=== PATIENT | male | born 1990 | race Hispanic/Latino ===

== ENCOUNTER 2016-12-02 22:19 | Emergency (ER) | payer OTHER ==
[~2016-12-02] VITALS: Ht 177.8 cm; Wt 68.2 kg
[2016-12-02 22:23] VITALS: BP 147/105; PULSE 71; RESP 16; O2SAT 99
[2016-12-02 23:32] LABS: BASOPHILS % (AUTO) 0.6 % (0-3); EOSINOPHILS % (AUTO) 1.2 % (0-5); MONOCYTES % (AUTO) 5.5 % (4-12); Mean Corpuscular Hemoglobin 33.3 pg (27.0-35.0); NEUTROPHILS % (AUTO) 57.8 % (40-74); Platelet Count 349 bil/L (150-400)
[2016-12-02 23:58] LABS: Magnesium 1.9 mg/dL (1.6-2.6)
--- NOTE | 2016-12-03 01:26 | ED.REPORT ---
HPI-Overdose/Alcohol Toxicity Date of Service Dec 03, 2016 ED Provider: Jose Rafael Meza MD The patient is a 26 year old male with a history of PTSD who presents to the ED with intermittent lower abdominal pain onset one year ago, worsening recently. The pain is described as "cramping" with occasional "sharpness," rated 10/10 at worst and exacerbated with alcohol use. Associated symptoms include nausea, dizziness, vision change, vomiting, and abdominal distention. The patient denies other symptoms. He has been drinking approximately 750mL hard alcohol per day for the past four months and has been drinking regularly for a couple of years. The patient's last alcoholic drink was at 2000 this evening. He has not been sober for more than three days in the past few months. He requests assistance with alcohol detox. History is difficult to obtain due to patient's alcohol intoxication. Nursing Notes Stated Complaint: ABDOMEN/LUNG PAIN Chief Complaint: Male Abdominal Pain Nursing Notes Reviewed: Yes Allergies: Coded Allergies: No Known Allergies (Unverified , 12/02/16) General Time Seen by Provider: 23:24 Chief Complaint Other (Abdominal Pain) Hx Obtained From: Patient Unable to Obtain Hx: Intoxicated Arrived By: Walk-in Onset Occurred: More than a week ago... (One year, worsening recently) Symptom Duration: Intermittent Progression Since Onset: Gradually worsening Location: : Abdomen Quality: Cramping, Painful, Sharp Severity: Current: Moderate Severity: Maximum: Pain level 10 out of 10 Exacerbated by: Alcohol use Pertinent Negative: Relieved by nothing Immunizations: Unknown Recent Healthcare: No recent doctor visit Past Medical History Past Medical History PTSD Past Surgical History None reported Smoking History Unknown if Ever Smoker Social History Alcohol Use: >5 per day Other Social History: Good social support Ambulatory Status Independent Review of Systems Review of Systems Note: + Abdominal distention Constitutional: Denies: Fever Respiratory: Denies: Non-productive cough, Shortness of breath GI: Reports: Abdominal pain (Lower), Nausea, Vomiting Neurologic: Reports: Dizziness, Vision change Complete sys rev & neg: except as marked. Physical Exam Initial Vital Signs Vital Signs (First) Date Time Temp Pulse Resp B/P Pulse Ox O2 Delivery O2 Flow Rate FiO2 12/02/16 22:23 36.2 71 16 147/105 99 Room Air Initial VS: Reviewed, Vital signs abnormal Head / Eyes: Atraumatic, Normocephalic ENT: Conjunctiva normal, No scleral icterus Neck: Supple, Full range of motion Skin: Warm, Dry, No cyanosis General/Constitutional: Awake, Alert Smells of alcohol Respiratory / Chest: Breath sounds NL, Breath sounds = bilat, No respiratory distress Cardiovascular: Heart rate NL, Regular rhythm, Heart sounds NL Abdomen: Soft, Non-tender Organomegaly / Mass / Hernia: Negative: Hepatomegaly Neurologic: Oriented X3, Speech NL Interpretation & Diagnostics BREATHALYZER: 0.201 URINE DRUG SCREEN: Negative URINE DIPSTICK: Bedside Urine Specific [place] * 1.010 Bedside Urine pH * 7 Bedside Urine Leukocyte Esterase * Negative Bedside Urine Nitrite * Negative Bedside Urine Protein * Negative Bedside Urine Glucose * Normal Bedside Urine Ketones * Negative Bedside Urine Urobilinogen * Normal Bedside Urine Bilirubin * Negative Bedside Urine Occult Blood * Negative Urine to Lab * Yes Lab Results Interpretation Result Diagram: 12/02/165 12/02/16 2315 Test 12/02/16 23:15 12/02/16 23:36 White Blood Count 8.6th/mm3 (3.8-10.1) Red Blood Count 5.13mil/mm3 (4.40-5.80) Hemoglobin 17.1g/dL (13.8-17.2) Hematocrit 47.7% (41.0-50.0) Mean Corpuscular Volume 93.0fL (81-100) Mean Corpuscular Hemoglobin 33.3pg (27.0-35.0) Mean Corpuscular Hemoglobin Concent 35.8% (32.0-37.0) Red Cell Distribution Width 12.3% (12.3-15.4) Platelet Count 349bil/L (150-400) Neutrophils (%) (Auto) 57.8% (40-74) Lymphocytes (%) (Auto) 34.7% (14-46) Monocytes (%) (Auto) 5.5% (4-12) Eosinophils (%) (Auto) 1.2% (0-5) Basophils (%) (Auto) 0.6% (0-3) Sodium Level 141mEq/L (134-144) Potassium Level 3.8mEq/L (3.5-5.2) Chloride Level 101mEq/L (97-108) Carbon Dioxide Level 23mmol/L (18-29) Blood Urea Nitrogen 9mg/dL (6-20) Creatinine 0.62mg/dL (0.76-1.27) Estimat Glomerular Filtration Rate 168mL/min (>59) Glucose Level 97mg/dL (60-99) Calcium Level 9.1mg/dL (8.5-10.1) Magnesium Level 1.9mg/dL (1.6-2.6) Total Bilirubin 0.2mg/dL (0.0-1.2) Aspartate Amino Transf (AST/SGOT) 23U/L (0-50) Alanine Aminotransferase (ALT/SGPT) 14U/L (0-44) Alkaline Phosphatase 89U/L (25-150) Total Protein 8.3g/dL (6.4-8.4) Albumin 4.8g/dL (3.4-5.0) Lipase 30U/L (13-60) Hold [place] Top Tube Received (Received) Hold Urine Received (Received) Lab values outside NL range: no clinical significance. Lab Results Interpretation: Unremarkable except for elevated alcohol at 201 Re-Eval/Medical Decision Med Decision/Clinical Course 26-year-old who drinks heavily on a daily basis. He was brought in by his family. He initially did not want me talking to his family about his problem but I felt that they needed to be involved. We discussed this and he gave me verbal permission to include them in the plan. He is unwilling to go to [facility] or be admitted for detox. His family is willing to take him home and they will be responsible for his Ativan taper prescription. He was encouraged to follow up with shipping and receiving specialist. He will return to the emergency room if he has complications of withdrawal. Re-Evaluation/Progress : Time of Eval: 02:27 Patient Status: Condition improved Re-Evaluation/Progress Note: Discussed patient's case with his family. Discussed with patient lab results, diagnosis, and plan for discharge. Follow-up and return to the ER instructions given. Patient agrees with plan for care and all questions were addressed. Counseled Regarding: Diagnosis, Lab results, Need for follow-up, When/why to return to ED Discharge & Departure Impression: Primary Impression: Abdominal pain Abdominal location: generalized Qualified Code: R10.84 - Generalized abdominal pain Additional Impression: Alcohol abuse Disposition: Home Discharge Condition All VS Reviewed: Yes Condition: Improved Patient Instructions: Abuse of Alcohol (ED), Acute Abdominal Pain (ED) Additional Instructions: As we discussed, you need to stop drinking. This is difficult to do on your own. You may develop withdrawal symptoms and medical complications of withdrawal. Lorazepam (Ativan) will be helpful for the withdrawal symptoms, please see the prescription we have given you. Also, we have given you a list of professional counseling resources. I would highly recommend that you get involved in outpatient alcohol counseling. If you have complications of withdrawal such as vomiting, inability to keep your medications down, etc., return to the emergency room. Referrals: [facility]OPCP (PCP) [facility] Alcoholics Anonymous (AA) [facility] Vicky Attestation Portions of this note were transcribed by Lyric Oro. I, Dr. Meza, personally performed the history, physical exam, and medical decision-making; I reviewed and confirmed the accuracy of the information in the transcribed note. Signed by: Vicky Preston, 12/03/2016, 04:30 copies to: Alcoholics Anonymous (AA); [facility]; [facility]; [facility]; [facility] Jose Rafael Meza MD Dec 03, 2016 01:26 LYRIC ORO Dec 03, 2016 01:52
[2016-12-03] MEDS ORDERED: _LORazepam 2 MG Tablet PO SCH (02:35)
[2016-12-03 03:36] VITALS: BP 128/83; PULSE 69; RESP 18; O2SAT 99
== END 2016-12-03 03:37 | disposition home or self-care (01) ==
LOC: SED 22:19
DX: R10.84 Generalized abdominal pain (principal); F10.10 Alcohol abuse, uncomplicated; F43.10 Post-traumatic stress disorder, unspecified

== ENCOUNTER 2017-01-16 00:46 | Emergency (ER) | payer OTHER ==
[2017-01-16 00:48] VITALS: BP 131/80; PULSE 70; RESP 16; O2SAT 98
--- NOTE | 2017-01-16 00:56 | ED.REPORT ---
HPI-Extremity Problem Lower Date of Service Jan 16, 2017 ED Provider: Dr. Tesfaye Pt is a 26 year old male with a hx of PTSD and alcohol abuse presenting to the ED complaining of left ankle pain after falling down the stairs twice recently. He was seen in the ER and diagnosed with a sprain, but reports that the pain is not getting any better. He denies any other symptoms at this time. Nursing Notes Stated Complaint: L ANKLE PAIN Chief Complaint: Extremity Trauma Nursing Notes Reviewed: Yes Allergies: Coded Allergies: No Known Allergies (Unverified , 12/02/16) General Time Seen by MD: 00:56 Chief Complaint Ankle injury left Hx Obtained From: Patient Arrived By: Walk-in Onset Occurred: Onset unknown Symptom Duration: Since onset Location: : Ankle left Quality: Painful Severity: Current: Moderate Severity: Maximum: Moderate Recent Healthcare: No recent hospitalization, Recent doctor visit Similar Sx Previous: No Past Medical History Past Medical History PTSD Past Surgical History None reported Smoking History Unknown if Ever Smoker Social History Alcohol Use: >5 per day Other Social History: Good social support Ambulatory Status Independent Review of Systems Constitutional: Denies: Fever, Weakness - generalized Musculoskeletal: Reports: Joint pain Complete sys rev & neg: except as marked. Respiratory: Denies: Shortness of breath GI: Denies: Vomiting Physical Exam Initial Vital Signs Vital Signs (First) Date Time Temp Pulse Resp B/P Pulse Ox O2 Delivery O2 Flow Rate FiO2 01/16/17 00:48 36.5 70 16 131/80 98 Room Air Initial VS: Reviewed General/Constitutional: Well-developed, Well-nourished Head / Eyes: Atraumatic, Normocephalic, PERRL ENT: Mucous membranes moist, Conjunctiva normal, No scleral icterus Neck: Supple, Non-tender, Full range of motion Respiratory: Breath sounds normal, Clear to auscultation, No respiratory distress Cardiovascular: Regular rate & rhythm, Heart sounds normal, Intact distal pulses Abdomen / GI: Soft, Non-tender, No guarding, No rebound, No distention Upper Extremities: Vascular intact, Neuro intact, No swelling, No tenderness Skin: Warm, Dry, No cyanosis Neurologic: Alert, Oriented, Nonfocal Psychiatric: Mood/affect normal, Behavior normal, Normal thought content Ankle / Foot: No deformity, Neurologic intact, Vascular intact Point tenderness on inferior lateral malleolus. Edematous. No crepitus. Interpretation & Diagnostics X-Ray Interpretation Xray Interpretation: LEFT ANKLE: Negative. No sign of fracture. Re-Eval/Medical Decision Re-Evaluation/Progress : Time of Eval: 01:43 Patient Status: Condition improved Re-Evaluation/Progress Note: Discussed plan for discharge. Pt understands and agrees with plan. Counseled Regarding: Diagnosis, Lab results, Need for follow-up, When/why to return to ED Discharge & Departure Impression: Primary Impression: Ankle sprain Encounter type: initial encounter Involved ligament of ankle: unspecified ligament Laterality: left Qualified Code: S93.402A - Sprain of unspecified ligament of left ankle, initial encounter Disposition: Home Discharge Condition All VS Reviewed: Yes Condition: Improved Patient Instructions: Ankle Sprain (ED), Crutch Instructions (ED) Additional Instructions: Your x ray does not show any signs of a fracture. Your ankle is likely moderately sprained. Wear the boot and use the crutches. Immobilization for 7- 10 days should help. You must wear the boot until you are cleared by your primary care doctor. Follow up with your primary care doctor in the next few days unless you have no more pain. Take Naprosyn twice per day as needed for pain. Follow up with orthopedics in the next week for repeat x rays. Referrals: NOPCP (PCP) Jay Lockwood MD Attestation Portions of this note were transcribed by Ed Omalley. I, Dr. Tesfaye personally performed the history, physical exam and medical decision-making; I reviewed and confirmed the accuracy of the information in the transcribed note. Signed by : Vicky Winter, 01/16/2017 at 0145. copies to: Jay Lockwood MD, Todd P DO Jan 16, 2017 00:56 ED [facility] Jan 16, 2017 01:35
[2017-01-16 02:14] VITALS: BP 128/74; PULSE 76; RESP 16; O2SAT 98
--- NOTE | 2017-01-16 13:51 | DRSVH ---
Caution: Report not yet finalized and possibly incomplete! PROCEDURE: X-RAY LEFT ANKLE, MINIMUM THREE VIEWS ([id number]) INDICATIONS: Ankle injury TECHNIQUE: Three views of the ankle were acquired. COMPARISON: None. FINDINGS: Bones: No fractures or dislocations. The ankle mortise is normally aligned. No suspicious bony les ions. Soft Tissues: No tibiotalar joint effusion. The Achilles tendon appears normal. IMPRESSION: 1. No acute fractures. Dictated by: Ace Garnica M.D. on 01/16/2017 at 8:57 Transcribed by: COSME on 01/16/2017 at 16:51
== END 2017-01-16 02:18 | disposition home or self-care (01) ==
LOC: SED 00:46
DX: S93.402A Sprain of unspecified ligament of left ankle, initial encounter (principal); F43.10 Post-traumatic stress disorder, unspecified; W10.8XXA Fall (on) (from) other stairs and steps, initial encounter; Y93.9 Activity, unspecified; Y92.009 Unspecified place in unspecified non-institutional (private) residence as the place of occurrence of the external cause; Y99.9 Unspecified external cause status